=== PATIENT | female | born 1985 | race Hispanic/Latino ===

== ENCOUNTER 2019-10-04 07:36 | Inpatient (IN) | payer OTHER ==
[~2019-10-04] VITALS: Ht 157.5 cm; Wt 69.9 kg
[2019-10-04] MEDS ORDERED: EPHEDRINE SULFATE 50 MG/ML AMPULE IVP PRN (09:00)
[2019-10-04] MEDS ORDERED: LACTATED RINGERS 500 ML 500 ML IV PRN (09:00)
[2019-10-04] MEDS ORDERED: PROMETHAZINE HCL 25 MG/ML 1ML AMPULE IM PRN (09:00)
[2019-10-04] MEDS ORDERED: ROPIVACAINE 0.2% 100ML VIAL 100 ML EP SCH (09:00)
[2019-10-04] MEDS ORDERED: OXYTOCIN-LR 20 UNITS/1000 ML 1,000 ML IV SCH (09:00)
[2019-10-04] MEDS ORDERED: MEPERIDINE-PF 50 MG/ML SYG IVP PRN (09:00)
[2019-10-04] MEDS ORDERED: OXYTOCIN 10 USP UNITS/ML 20 UNIT in LACTATED RINGERS 1000ML 1,000 ML IV SCH (09:00)
[2019-10-04] MEDS ORDERED: NALOXONE HCL 0.4 MG/1 ML ML IV PRN (09:00)
[2019-10-04] MEDS: OXYTOCIN-LR 20 UNITS/1000 ML 1,000 ML IV SCH (09:14)
[2019-10-04 09:24] LABS: HEMATOCRIT 32.7 % (36-48); MEAN CORPUSCULAR HEMOGLOBIN 29.9 pg (27.0-33.0); MEAN CORPUSCULAR HGB CONC 33.3 g/dL (32.0-36.0); MEAN CORPUSCULAR VOLUME 89.6 fL (79-99); RED BLOOD CELL COUNT(AUTO) 3.65 MIL/uL (4.00-5.50); RED CELL DISTRIBUTION WIDTH 13.3 % (11.0-15.5); WHITE BLOOD COUNT (AUTO) 8.3 K/uL (4.8-10.8)
[2019-10-04] MEDS ORDERED: AMPICILLIN 2GM+NS 100ML 100 ML IV SCH (18:00)
[2019-10-04] MEDS: LACTATED RINGERS 1000ML 1,000 ML IV PRN (19:14)
[2019-10-04] MEDS ORDERED: AMPICILLIN 1GM+NS 50ML 50 ML IV ONE (20:24)
[2019-10-05] MEDS: AMPICILLIN 1GM+NS 50ML 50 ML IV SCH ×2 (02:21→06:21)
[2019-10-05] MEDS: LACTATED RINGERS 1000ML 1,000 ML IV PRN (02:24)
[2019-10-05] MEDS: OXYTOCIN-LR 20 UNITS/1000 ML 1,000 ML IV SCH (03:47)
[2019-10-05] MEDS ORDERED: FENTANYL CITRATE PF 50 MCG/1 ML 2ML VIAL ONE (09:09)
[2019-10-05 09:10] LABS: HEPATITIS Bs ANTIGEN SCREEN P Negative (Negative)
[2019-10-05] MEDS ORDERED: LACTATED RINGERS 1000ML 1,000 ML IV SCH (10:30)
[2019-10-05] MEDS ORDERED: CALDOLOR 800MG+NS 250ML 250 ML IV PRN (10:30)
[2019-10-05] MEDS ORDERED: CEFAZOLIN SODIUM 1 GM VIAL IVP PRN (10:30)
[2019-10-05] MEDS ORDERED: METHYLERGONOVINE MALEATE 0.2 MG/1 ML ML ONE (10:30)
[2019-10-05] MEDS ORDERED: OXYTOCIN 10 USP UNITS/ML ONE (10:48)
[2019-10-05] MEDS ORDERED: DEXAMETHASONE SOD PHOSPHATE 10MG/ML 1ML VIAL ONE (10:49)
[2019-10-05] MEDS ORDERED: DURAMORPH PF1 MG/ML 10ML AMP IV ONE (10:50)
[2019-10-05] MEDS ORDERED: ONDANSETRON HCL 4 MG/2 ML VIAL ONE (10:50)
[2019-10-05] MEDS ORDERED: CEFAZOLIN SODIUM 1 GM VIAL IVP ONE (10:55)
[2019-10-05] MEDS ORDERED: LIDOCAINE HCL-MPF 2% 5ML VIAL ONE ×4 (11:04)
[2019-10-05] MEDS ORDERED: PHENYLEPHRINE HCL 10 MG/ML 1ML VIAL IV ONE (11:16)
[2019-10-05] MEDS ORDERED: MEPERIDINE-PF 50 MG/ML SYG ONE (11:18)
[2019-10-05] MEDS ORDERED: OXYTOCIN-LR 20 UNITS/1000 ML 1,000 ML IV PRN (11:45)
[2019-10-05] MEDS ORDERED: PROMETHAZINE HCL 25 MG/ML 1ML AMPULE IM PRN (11:45)
[2019-10-05] MEDS ORDERED: MEPERIDINE-PF 75 MG/ML SYG IM PRN (11:45)
[2019-10-05] MEDS ORDERED: SODIUM CHLORIDE 0.9% 10 ML VIAL IVP PRN (11:45)
[2019-10-05 19:22] VITALS: BP 94/50
[2019-10-05] MEDS: CALDOLOR 800MG+NS 250ML 250 ML IV SCH (20:29)
[2019-10-05] MEDS: DEXTROSE 5 %-0.45 % NACL 1,000 ML IV PRN (20:29)
--- NOTE | 2019-10-05 20:30 | NUR ---
MEDS Pitocin IV bag #2 complete. IV fluids changed to D5 1/2 NS @ rate of 150ml/hr. Caldolor 800mg IVPB hung. Medication use and possible side effects explained to patient and spouse. Patient verbalizes understanding and denies any questions at this time.
--- NOTE | 2019-10-05 22:16 | NUR ---
Patient awake, alert, and oriented x3. Patient sitting up in bed hand expressing breastmilk. Pt's spouse cradling infant. Patient denies pain and voices no concerns at this time. Addendum: 10/05/19 at 2217 by DAVID MORALES RN RN Amended: Links added.
[2019-10-06] VITALS (7 sets, daily range): BP systolic 95–117; BP diastolic 52–70
--- NOTE | 2019-10-06 02:40 | NUR ---
JAMES CARE James care given. Patient able to move in bed without difficulty and tolerated well. Scant lochia noted and fundus remains firm at -1. Patient voices no concerns at this time. Lights dimmed to allow patient to rest. Addendum: 10/06/19 at 0302 by DAVID MORALES RN RN Amended: Links added.
[2019-10-06] MEDS: CALDOLOR 800MG+NS 250ML 250 ML IV SCH (04:35)
--- NOTE | 2019-10-06 06:30 | NUR ---
AM LAB Ordered CBC collected and sent to lab. Patient tolerated well. Patient denies any pain and voices no concerns at this time.
[2019-10-06 06:49] LABS: HEMATOCRIT 23.9 % (36-48); MEAN CORPUSCULAR HEMOGLOBIN 30.6 pg (27.0-33.0); MEAN CORPUSCULAR HGB CONC 33.1 g/dL (32.0-36.0); MEAN CORPUSCULAR VOLUME 92.6 fL (79-99); RED BLOOD CELL COUNT(AUTO) 2.58 MIL/uL (4.00-5.50); RED CELL DISTRIBUTION WIDTH 13.6 % (11.0-15.5); WHITE BLOOD COUNT (AUTO) 12.4 K/uL (4.8-10.8)
--- NOTE | 2019-10-06 07:15 | NUR ---
REPORT Report given to Moiz Falcon RN to assume patient care.
--- NOTE | 2019-10-06 07:15 | NUR ---
REPORT RECEIVED FROM Kitty HERNANDEZ RN AND PATIENT CARE TRANSFERED AT THIS TIME.
--- NOTE | 2019-10-06 07:45 | NUR ---
PATIENT HAD DRESSING REMOVED AND NO ACTIVE DRAINAGE NOTED TO SITE. INCISION WITH INSORB KELLIE AND STERI STRIPS LEFT OPEN TO AIR. ABD PAD AND ABDOMINAL BINDER APPLIED TO INCISIONAL SITE. PIV IS PATENT AND INFUSING WELL. NO EDEMA OR LEAKAGE NOTED. ROSS CATHETER REMOVED AND DISCARDED 300CC OF YELLOW URINE. ASSISTED PATIENT UP TO CHAIR AND TOLERATED ACTIVITY WELL WITHOUT ANY DIZZINESS. STATES PAIN LEVEL OF 3 AND WILL MEDICATE INDICATED.
[2019-10-06] MEDS: DEXTROSE 5 %-0.45 % NACL 1,000 ML IV PRN (07:49)
[2019-10-06] MEDS ORDERED: ACETAMINOPHEN EXTRA STRENGTH 500 MG TABLET PO PRN (08:30)
[2019-10-06] MEDS ORDERED: IBUPROFEN 600 MG TABLET PO PRN (08:30)
[2019-10-06] MEDS ORDERED: BISACODYL 10 MG SUPP.RECT RC PRN (08:30)
[2019-10-06] MEDS ORDERED: DIPH,PERTUSS(ACELL),TET VAC/PF 0.5 ML VIAL IM SCH (08:30)
[2019-10-06] MEDS ORDERED: ACETAMINOPHEN-CODEINE 300/30MG TAB PO PRN (08:30)
--- NOTE | 2019-10-06 09:15 | NUR ---
MEDICATED PATIENT WITH TYLENOL #3 FOR PAIN OF 4 AND PATIENT AMBULATED IN ROOM. C/O FEELING TIRED AND INSTRUCTED TO TAKE NAP AND THEN WALK IN HALLWAY.
[2019-10-06] MEDS: DOCUSATE SODIUM 100 MG CAP PO SCH ×2 (09:23→20:32)
[2019-10-06] MEDS: SIMETHICONE 80 MG TAB.CHEW PO PRN ×4 (09:23→22:35)
--- NOTE | 2019-10-06 10:30 | NUR ---
PATIENT WAS NOT ABLE TO VOID AND ENCOURAGED TO DRINK WATER AND TRY TO AMBULATE ONCE TYLENOL #3 CONTROLS DISCOMFORT.
--- NOTE | 2019-10-06 10:50 | NUR ---
TALKED TO DR. JENSEN AND WAS MADE AWARE OF PATIENT STATUS AND REQUESTED TO ORDER TUCKS FOR HEMORRHOIDS AND RECEIVED ORDER. UPON GIVEN DULCOLAX SUPPOSITORY, NOTED PATIENT HAS HEMORRHOIDS.
[2019-10-06] MEDS ORDERED: WITCH HAZEL 1 PAD TP PRN (11:00)
--- NOTE | 2019-10-06 11:00 | NUR ---
SPOKE TO ROME MANDEL AND WAS MADE AWARE OF EPIDURAL CATHETER STILL ON PATIENT AND PATIENT C/O LEAKING AT SITE. ON ASSESSMENT NO LEAKAGE OR WETNESS NOTED. PATIENT HAS NO C/O HEADACHE OR ANYTHING AND INDICATED WANTING TO TALK TO PATIENT AND CALL WAS TRANSFERED TO ROOM.
--- NOTE | 2019-10-06 11:00 | NUR ---
DR. JENSEN INDICATED TO KEEP PATIENT OVERNIGHT IF ANY ISSUES ARISE FROM EPIDURAL AND IF NOT MAY BE DISCHARGED TO HOME.
--- NOTE | 2019-10-06 11:10 | NUR ---
TUCKS OBTAINED AND APPLIED TO RECTUM FOR COMFORT. PATIENT WAS ALSO GIVEN WARM PRUNE JUICE AND INSTRUCTED TO DRINK ALL THE JUICE AND WALK IN HALLWAY TO STIMULATE BOWEL AND BLADDER TO VOID AND HOPEFULLY PASS GAS.
--- NOTE | 2019-10-06 12:30 | NUR ---
SPOKE TO ROME MANDEL AND ORDER UPDATED HIM ON PATIENT STATUS. PT WAS UP TO BATHROOM TO ATTEMPT TO VOID AND STATES HER GETTING A HEADACHE. PATIENT NOT ABLE TO VOID AND WAS ASSISTED TO BED BY , BUT THEN GOT UP AGAIN BECAUSE SHE WANTED TO WALK. ROME MANDEL INDICATED NOT WANTING PATIENT TO REMAIN IN BEDREST, CONTINUE IV FLUIDS AT 100CC/HR AND ORDER CAFFEINE IV TIMES ONCE. WILL OBTAIN DOSAGE FROM PHARMACY.
[2019-10-06] MEDS: IBUPROFEN 800 MG TAB PO SCH ×2 (12:38→20:33)
--- NOTE | 2019-10-06 12:49 | NUR ---
EPIDURAL EPIDURAL CATHETER REMOVED, CATHETER INTACT, TOLERATED WELL. LARGE BANDAID APPLIED TO SITE.
--- NOTE | 2019-10-06 12:55 | NUR ---
CARISSA BOYKIN CRNA IN TO SEE PATIENT AND ORDERS GIVEN BY ROME MANDEL REINFORCED TO PATIENT AND IMPORTANCE ON STAYING ON BEDREST.
[2019-10-06] MEDS ORDERED: SODIUM CHLORIDE 0.9% IV ONE (13:00)
[2019-10-06] MEDS ORDERED: CAFFEINE CITRATED IV ONE (13:00)
[2019-10-06] MEDS: SODIUM CHLORIDE 0.9% 1000ML 1,000 ML IV SCH ×2 (13:00→23:13)
--- NOTE | 2019-10-06 14:00 | NUR ---
NS BOLUS STARTED AND INFUSING AT 500CC/HR. PATIENT WAS ALSO GIVEN MOTRIN AT 1338 AND STATES FEELING BETTER AFTER TAKING MOTRIN AND BOLUS.
[2019-10-06] MEDS ORDERED: CAFFEINE CITRATED IV SCH (15:15)
[2019-10-06] MEDS ORDERED: SODIUM CHLORIDE 0.9% IV SCH (15:15)
[2019-10-06] MEDS ORDERED: SODIUM CHLORIDE 0.9% 1000ML 1,000 ML IV SCH ×2 (16:00→20:00)
--- NOTE | 2019-10-06 16:15 | NUR ---
NS BOLUS COMPLETED AND STARTED NS WITH CAFFEINE. OFFERED TO INSERT ROSS CATHETER AND PATIENT INDICATED WANTING TO GET UP TO BATHROOM. STATES ALREADY HAD A BM AND CANNOT GO IN BED DÍAZ.
--- NOTE | 2019-10-06 18:30 | NUR ---
PATIENT WAS ABLE TO HAVE 2 BMS AND PASSED GAS THIS AFTERNOON. DENIES ANY FURTHER HEADACHE AND HAS BEEN UP TO BATHROOM ALTHOUGH A BED DÍAZ WAS GIVEN TO VOID. DENIES HEADACHE AND STATES FEELING BETTER. IV WITH CAFFEINE STILL INFUSING.
[2019-10-06] MEDS: HYDROCODONE/ACETAMINOPHEN 5/325 MG TAB PO PRN (22:38)
[2019-10-07] MEDS ORDERED: PREN-18 PO (02:58)
[2019-10-07 03:50] VITALS: BP 100/54
[2019-10-07] MEDS: IBUPROFEN 800 MG TAB PO SCH ×2 (04:23→11:48)
[2019-10-07] MEDS: HYDROCODONE/ACETAMINOPHEN 5/325 MG TAB PO PRN (05:40)
[2019-10-07 08:00] VITALS: BP 102/60
--- NOTE | 2019-10-07 08:40 | NUR ---
HEADACHE ASSESSMENT STELLA AMARO CRNA AT BEDSIDE TO ASSESS AND TALK TO PT. PT STATES ONLY HAS MILD DISCOMFORT WHEN SITTING OR STANDING AND IS AWARE TO CONTINUE WITH FLUIDS, CAFFEINE, AND PAIN MEDICATION FOR TREATMENT.
[2019-10-07] MEDS: DOCUSATE SODIUM 100 MG CAP PO SCH (08:57)
[2019-10-07] MEDS: SIMETHICONE 80 MG TAB.CHEW PO PRN (08:57)
[2019-10-07 11:45] VITALS: BP 101/69
--- NOTE | 2019-10-07 15:20 | NUR ---
DISCHARGE PT LEFT UNIT VIA WHEELCHAIR, WITH BABY IN ARMS, ACCOMPANIED BY SIGNIFICANT OTHER. DENIED PAIN AND HAD NO COMPLAINTS. BABY STRAPPED IN CAR SEAT. PT AND BABY TRANSPORTED BY PERSONAL VEHICLE.
== END 2019-10-07 15:20 | disposition home or self-care (01) | DRG 788 ==
LOC: EDH 07:36 → OBSVTOIN 07:37 → LDH 07:37 → WSH 10-05 18:01
PROVIDERS: ADMIT Obstetrics & Gynecology; ATTEND Obstetrics & Gynecology
PROC: 10D00Z1 Extraction of Products of Conception, Low, Open Approach (ICD-10-PCS; principal; 2019-10-05 10:30)
PROC: 3E0234Z Introduction of Serum, Toxoid and Vaccine into Muscle, Percutaneous Approach (ICD-10-PCS; 2019-10-06)
DX: O42.92 Full-term premature rupture of membranes, unspecified as to length of time between rupture and onset of labor (principal); O62.0 Primary inadequate contractions; Z37.0 Single live birth; Z3A.39 39 weeks gestation of pregnancy; Z23 Encounter for immunization
CPT/HCPCS: 36415; 59510; 85027; 86592; 86850; 86900; 86901; 87340; 90715; A4314; A4344; A4606; G0378; J0290; J0690; J0706; J1100; J1741; J2175; J2210; J2274; J2370; J2405; J2590; J2795; J3010; J3490; J7030; J7040; J7042; J7120

== ENCOUNTER 2019-10-12 02:43 | Inpatient (IN) | payer OTHER ==
[~2019-10-12] VITALS: Ht 157.5 cm; Wt 69.8 kg
[~2019-10-12 02:43] MED LIST: PREN-18 PO
[2019-10-12] MEDS ORDERED: ACETAMINOPHEN EXTRA STRENGTH 500 MG TABLET ONE (03:12)
[2019-10-12] MEDS ORDERED: CEFTRIAXONE SODIUM 2 GM VIAL ONE (03:12)
[2019-10-12 03:19] LABS: APPEARANCE,URINE Clear (CLEAR); BILIRUBIN,URINE Negative (NEGATIVE); COLOR,URINE Yellow (YELLOW); GLUCOSE, URINE (UA) Negative (NEGATIVE); KETONES,URINE 15 mg/dL (NEGATIVE); LEUKOCYTE ESTERASE ,URINE Large (NEGATIVE); NITRATE,URINE Negative (NEGATIVE); OCCULT BLOOD,URINE Large (NEGATIVE); PROTEIN,URINE POS 1+ mg/dL (NEGATIVE)
[2019-10-12 03:25] LABS: BASOPHILS % (AUTO) 0.1 % (0.0-5.0); EOSINOPHILS % (AUTO) 1.1 % (0.0-8.0); LYMPHOCYTES % (AUTO) 7.8 % (21.0-51.0); MEAN CORPUSCULAR HEMOGLOBIN 29.9 pg (27.0-33.0); MEAN CORPUSCULAR HGB CONC 33.9 g/dL (32.0-36.0); MEAN CORPUSCULAR VOLUME 88.1 fL (79-99); MONOCYTES % (AUTO) 4.2 % (3.0-13.0); NUCLEATED RED BLOOD CELLS 0.2 % (0.0-0.19); PLATELET COUNT (AUTO) 296 K/uL (130-400); RED BLOOD CELL COUNT(AUTO) 2.61 MIL/uL (4.00-5.50); RED CELL DISTRIBUTION WIDTH 12.7 % (11.0-15.5)
[2019-10-12 03:27] LABS: BACTERIA,URINE Few /HPF (None Seen); MUCUS,URINE Few LPF (None Seen); WBC,URINE 26-50 /HPF (0-1)
[2019-10-12 03:33] LABS: CARBON DIOXIDE 25 mmol/L (21-32); CHLORIDE 101 mmol/L (101-111); CREATININE 0.8 mg/dL (0.5-1.5); GLOMERULAR FILTR. RATE CALC 89 mL/min (>60); GLUCOSE,RANDOM 106 mg/dL (70-105); POTASSIUM 3.4 mmol/L (3.5-5.1); SODIUM SERUM 137 mmol/L (136-145); UREA NITROGEN, BLOOD 13 mg/dL (7-18)
[2019-10-12 03:39] LABS: INR 0.89 (0.85-1.15); PARTIAL THROMBOPLASTIN TIME 29.6 SEC (26.3-35.5); PROTHROMBIN TIME 9.7 SEC (9.6-11.6)
[2019-10-12 03:45] LABS: ALANINE AMINOTRANSFERASE 15 U/L (12-78); ALBUMIN 2.2 g/dL (3.5-5.0); ASPARTATE AMINOTRANSFERASE 13 U/L (10-37); BILIRUBIN,TOTAL 0.5 mg/dL (0.2-1.0); CREATINE KINASE, TOTAL 58 U/L (21-232); MYOGLOBIN 20 ng/mL (10-92); TOTAL PROTEIN, SERUM 6.5 g/dL (6.0-8.3); TROPONIN I < 0.04 ng/mL (0.00-0.06)
[2019-10-12] MEDS ORDERED: IOHEXOL-350 75 ML VIAL IV ONE (04:33)
[2019-10-12] MEDS ORDERED: DiphenhydrAMINE HCL 50 MG/ML VIAL ONE (05:04)
[2019-10-12] MEDS ORDERED: HYDROCODONE/ACETAMINOPHEN 5/325 MG TAB PO PRN (08:15)
[2019-10-12] MEDS ORDERED: GENTAMICIN PROTOCOL PER PHARMACY IV SCH ×2 (08:15→11:30)
[2019-10-12] MEDS ORDERED: ACETAMINOPHEN-CODEINE 300/30MG TAB PO PRN (08:15)
[2019-10-12] MEDS ORDERED: BISACODYL 10 MG SUPP.RECT RC PRN (08:15)
[2019-10-12 08:30] VITALS: BP 120/77
[2019-10-12] MEDS: SIMETHICONE 80 MG TAB.CHEW PO PRN ×2 (09:50→20:28)
[2019-10-12] MEDS: CLINDAMYCIN 900 MG/D5% WATER 50 ML IV SCH ×2 (09:51→18:35)
[2019-10-12] MEDS: DOCUSATE SODIUM 100 MG CAP PO PRN ×2 (09:51→20:28)
[2019-10-12] MEDS: LACTATED RINGERS 1000ML 1,000 ML IV SCH (09:52)
[2019-10-12] MEDS: PRENATAL VITAMIN RX TABLET PO SCH (09:54)
[2019-10-12 11:54] VITALS: BP 124/81
[2019-10-12] MEDS: GENTAMICIN IV SCH ×2 (13:30→20:19)
[2019-10-12] MEDS: [UNRECOGNIZED DRUG - OTHER] IV SCH ×2 (13:30→20:19)
[2019-10-12] MEDS: IBUPROFEN 800 MG TAB PO SCH ×2 (13:31→20:29)
[2019-10-12 16:33] VITALS: BP 118/83
[2019-10-12] MEDS ORDERED: ACET1TAB12 PO (18:00)
[2019-10-12] MEDS ORDERED: DOCU-116 PO (18:00)
[2019-10-12] MEDS ORDERED: IBUP-2077 PO (18:00)
[2019-10-12 20:05] VITALS: BP 132/80
[2019-10-12] MEDS: FERROUS SULFATE 325 MG TABLET.DR PO SCH (20:29)
[2019-10-13] VITALS (7 sets, daily range): BP systolic 119–144; BP diastolic 79–93
[2019-10-13] MEDS: LACTATED RINGERS 1000ML 1,000 ML IV SCH ×4 (00:11→18:20)
[2019-10-13] MEDS: CLINDAMYCIN 900 MG/D5% WATER 50 ML IV SCH ×4 (00:15→23:54)
[2019-10-13] MEDS: IBUPROFEN 800 MG TAB PO SCH ×4 (02:13→23:54)
[2019-10-13] MEDS: GENTAMICIN IV SCH ×3 (04:02→20:01)
[2019-10-13] MEDS: [UNRECOGNIZED DRUG - OTHER] IV SCH ×3 (04:02→20:01)
--- NOTE | 2019-10-13 04:30 | NUR ---
Result of anaerobic blood culture received from Laboratory; result: Gram + cocci 1 of 2 anaerobic bottle. Patient received 2 antibiotics and is on contact isolation. We will inform Moiz Patton in AM for the result.
[2019-10-13] MEDS: SIMETHICONE 80 MG TAB.CHEW PO PRN ×2 (09:10→22:07)
[2019-10-13] MEDS: FERROUS SULFATE 325 MG TABLET.DR PO SCH ×2 (09:10→22:07)
[2019-10-13] MEDS: DOCUSATE SODIUM 100 MG CAP PO PRN ×2 (09:10→22:07)
[2019-10-13] MEDS: PRENATAL VITAMIN RX TABLET PO SCH (09:10)
--- NOTE | 2019-10-13 11:30 | NUR ---
DR. POLANCO ROUNDED AND USED TIP OF Q-TIP TO OPEN INCISION FOR ABOUT 4-5CM AND PACKED INCISION WITH WET TO DRY GAUZE USING NS. PATIENT TOLERATED ACTIVITY WELL. STATES HAVING DISCOMFORT BUT NOT SEVERE PAIN. DRY GAUZE APPLIED AFTER WET PACKING DONE AND ABD USED WITH PAPER TAPE TO COVER SITE. NO NEW ORDERS GIVEN AND INFORMED PATIENT OF WOUND CENTER WILL BE NOTIFIED IN A.M. FOR CONSULT AND POSSIBLE WOUND VAC.
--- NOTE | 2019-10-13 11:30 | NUR ---
TROUGH DRAWN AND WILL HANG GENTAMICIN AT 1200 AND THEN DRAW FOR PEAK.
--- NOTE | 2019-10-13 13:40 | NUR ---
PEAK AND TROUGH RESULTS RECEIVED AND RESULTS FAXED TO PHARMACY.
--- NOTE | 2019-10-13 16:30 | NUR ---
PATIENT UP AND AMBULATINGH IN HALLWAY AND TOLERATING ACTIVITY WELL. PIV PATENT.
[2019-10-14] MEDS: GENTAMICIN IV SCH ×3 (03:37→20:19)
[2019-10-14] MEDS: [UNRECOGNIZED DRUG - OTHER] IV SCH ×3 (03:37→20:19)
[2019-10-14] MEDS: LACTATED RINGERS 1000ML 1,000 ML IV SCH ×3 (03:37→22:01)
[2019-10-14 03:45] VITALS: BP 116/71
[2019-10-14] MEDS: IBUPROFEN 800 MG TAB PO SCH ×3 (05:51→18:18)
[2019-10-14 07:29] VITALS: BP 147/87
[2019-10-14] MEDS: CLINDAMYCIN 900 MG/D5% WATER 50 ML IV SCH ×2 (08:04→18:17)
[2019-10-14] MEDS: FERROUS SULFATE 325 MG TABLET.DR PO SCH ×2 (08:48→21:46)
[2019-10-14] MEDS: PRENATAL VITAMIN RX TABLET PO SCH (08:48)
[2019-10-14 11:18] VITALS: BP 129/82
--- NOTE | 2019-10-14 16:25 | NUR ---
[facility] NURSES AT BEDSIDE TO ASSESS WOUND. WOUND MEASURED AT L: 1CM X W: 5.5CM X D: 3CM. DRESSING CHANGE DONE WITH WET TO DRY AND PT TOLERATED WELL. RECOMMENDATIONS GIVEN FOR WOUND VAC AND TO START MEDI HONEY.
[2019-10-14 16:30] VITALS: BP 120/88
--- NOTE | 2019-10-14 16:30 | NUR ---
[facility] consult Patient assessed as ordered. [facility] recommendations submitted and report given to patient's nurse, Aletha JACOBS. Addendum: 10/15/19 at 0746 by ALBIN GONZALEZ RN/ Amended: Links added.
[2019-10-14 19:40] VITALS: BP 134/79
[2019-10-14] MEDS: DOCUSATE SODIUM 100 MG CAP PO PRN (21:46)
[2019-10-14] MEDS: SIMETHICONE 80 MG TAB.CHEW PO PRN (21:46)
[2019-10-14 23:34] VITALS: BP 129/81
[2019-10-15] MEDS: CLINDAMYCIN 900 MG/D5% WATER 50 ML IV SCH ×2 (00:44→09:29)
[2019-10-15] MEDS: IBUPROFEN 800 MG TAB PO SCH ×2 (00:49→06:21)
[2019-10-15 02:54] VITALS: BP 152/77
[2019-10-15] MEDS: [UNRECOGNIZED DRUG - OTHER] IV SCH (04:16)
[2019-10-15] MEDS: GENTAMICIN IV SCH (04:16)
[2019-10-15 07:45] VITALS: BP 105/80
--- NOTE | 2019-10-15 08:50 | NUR ---
DRESSING CHANGE DONE AT THIS TIME RECOMMENDED BY WOUND CARE.
[2019-10-15] MEDS ORDERED: HONEY 1 APPL/ML TUBE TP SCH ×2 (09:15→09:30)
[2019-10-15 09:24] VITALS: BP 118/85
[2019-10-15] MEDS: FERROUS SULFATE 325 MG TABLET.DR PO SCH (09:29)
[2019-10-15] MEDS: PRENATAL VITAMIN RX TABLET PO SCH (09:29)
[2019-10-15 11:20] VITALS: BP 147/98
--- NOTE | 2019-10-15 13:00 | NUR ---
DISCHARGE INSTRUCTIONS REVIEWED WITH PATIENT. RX FOR FLAGYL 500MG AND AUGMENTIN 875MG HANDED TO PATIENT. DRESSING CHANGE AND INCISION CARE REVIEWED WITH PATIENT. PATIENT VOICED UNDERSTANDING ON ALL INSTRUCTIONS. STATES SHE HAS HER AT HOME TO ASSIST WITH DRESSING CHANGES.
--- NOTE | 2019-10-15 13:35 | NUR ---
PATIENT LEFT UNIT VIA WHEELCHAIR WITH BELONGINGS IN HAND. PERSONAL VEHICLE USED FOR TRANSPORTATION. NO COMPLAINTS OR CONCERNS ADDRESSED FROM PATIENT ON DISCHARGE,
--- NOTE | 2019-10-15 13:57 | NUR ---
DC PLAN SPOKE TO NURSE AND PATIENT. WOUND VAC RECOMMENDED BY [facility]. ORDER SIGNED BY DR. POLANCO. PATIENT DOES NOT WANT TO WAIT FOR HOME HEALTH OR DME. EXPLAINED THAT SHE COULD WAIT FOR APPROVAL SAID NO SHE WANTS TO GO HOME AND BE WITH HER BABY. DR. POLANCO OKAY WITH PATIENT GOING HOME PRIOR TO EQUIPMENT AND HOME HEALTH SET UP. NURSE GOING TO TEACH PATIENT HOW TO DO DRESSING CARE WITH [facility] UNTIL HOME HEALTH ACCEPT PATIENT AND WOUND VAC IS DELIVERED TO HOME. PATIENT VERBALIZE COMFORT WITH DOING OWN WOUND CARE. GAVE VERBAL CONSENT FOR [facility] AND [facility]. PATIENT IN ISOLATION ROOM NOT ABLE TO ENTER. FLOOR NURSE WITNESS TO CONSENT. INFO SENT TO [facility] AND u.sit [facility]. [facility] RECEIVED WORKING ON AUTH. Addendum: 10/15/19 at 1418 by CLIFTON MOORE RN CM Amended: Links added.
--- NOTE | 2019-10-15 16:19 | NUR ---
LILY SCHREIBER WITH THE [facility] CALLED SAID PATIENT HAD A 1500 DOLLAR COPAY. CALLED PATIENT NO ANSWER. CALLED SPOUSE SAID THEY HAD PAID COPAY TO HOSPITAL PRIOR TO C SECTION. TOLD HIM I WOULD LOOK FOR RECEIPT. FOUND RECEIPT ON VISIT [id number]. PRINTED AND FAXED TO [facility]. SAID THEY WOULD ACCEPT THAT PROOF THAT COPAY HAD BEEN MET. WILL ACCEPT PATIENT. THEY HAVE BEEN TRYING TO GET A HOLD OF DR. POLANCO FOR ORDERS SIGNED NO ANSWER IN OFFICE. GAVE THEM CONTACT NUMBER FOR MD TOLD THEM THEY CAN ALSO FAX FORM HERE AND I WOULD TRY TO GET MD TO SIGN. Addendum: 10/15/19 at 1622 by CLIFTON MOORE RN Amended: Links added.
== END 2019-10-15 13:35 | disposition home health service (06) | DRG 776 ==
LOC: EDH 02:43 → EDHIP 05:50 → WSH 09:42
PROVIDERS: ADMIT Obstetrics & Gynecology; ATTEND Obstetrics & Gynecology
DX: O86.00 Infection of obstetric surgical wound, unspecified (principal); Z91.041 Radiographic dye allergy status
CPT/HCPCS: 36415; 71045; 74177; 80053; 80170; 81001; 82550; 83605; 83874; 84145; 84484; 85025; 85610; 85730; 87040; 87070; 87076; 87077; 87088; 87186; 93005; 93971; G0378; J0696; J1200; J1580; J3490; J7120; Q9967

== ENCOUNTER → 2019-10-22 | Outpatient (CLI) | payer OTHER ==
[~2019-10-22] MED LIST changes: +ACET1TAB12 PO; +DOCU-116 PO; +IBUP-2077 PO; +LIDOCAINE HCL 4% LTA SOL 4 ML VIAL ONE
[2019-10-22 11:21] VITALS: BP 115/77
== END | disposition home or self-care (01) ==
LOC: WHH 08:00
PROVIDERS: ATTEND Surgery
DX: O90.0 Disruption of cesarean delivery wound (principal)
CPT/HCPCS: 97605; 99215

== ENCOUNTER → 2019-10-29 | Outpatient (CLI) | payer OTHER ==
[~2019-10-29] MED LIST changes: -ACET1TAB12 PO; -DOCU-116 PO; -IBUP-2077 PO; -PREN-18 PO
[2019-10-29 09:53] VITALS: BP 97/67; PULSE 62; RESP 16; TEMP 98
== END | disposition home or self-care (01) ==
LOC: WHH 08:30
PROVIDERS: ATTEND Surgery
DX: O90.0 Disruption of cesarean delivery wound (principal)

== ENCOUNTER → 2019-11-05 | Outpatient (CLI) | payer OTHER ==
[~2019-11-05] MED LIST changes: +ACET1TAB12 PO; +DOCU-116 PO; +IBUP-2077 PO; -LIDOCAINE HCL 4% LTA SOL 4 ML VIAL ONE; +PREN-18 PO
[2019-11-05 12:01] VITALS: BP 103/73
== END | disposition home or self-care (01) ==
LOC: WHH 08:30
PROVIDERS: ATTEND Surgery
DX: O90.0 Disruption of cesarean delivery wound (principal)
CPT/HCPCS: 97605; 99214

== ENCOUNTER → 2019-11-12 | Outpatient (CLI) | payer OTHER ==
[~2019-11-12] MED LIST changes: +LIDOCAINE HCL 4% LTA SOL 4 ML VIAL ONE
== END | disposition home or self-care (01) ==
LOC: WHH 08:30
PROVIDERS: ATTEND Surgery
DX: O90.0 Disruption of cesarean delivery wound (principal)
CPT/HCPCS: 99213; A6021

== ENCOUNTER → 2019-11-19 | Outpatient (CLI) | payer OTHER ==
[~2019-11-19] MED LIST changes: -LIDOCAINE HCL 4% LTA SOL 4 ML VIAL ONE
== END | disposition home or self-care (01) ==
LOC: WHH 08:30
PROVIDERS: ATTEND Surgery
DX: O90.0 Disruption of cesarean delivery wound (principal)
CPT/HCPCS: 99214